=== PATIENT | female | born 1980 | race Two or more races ===

== ENCOUNTER 2017-10-20 19:45 | Emergency (ER) | payer SELFPAY ==
[2017-10-20] MEDS: IBUPROFEN 800 MG TABLET. PO (20:52)
[2017-10-20 21:01] LABS: INFLUENZA A PATIENT POSITIVE (NEGATIVE); INFLUENZA B PATIENT NEGATIVE (NEGATIVE); OBC FLU VALID
[2017-10-21 11:55] LABS: NEGATIVE OBC STREP NEG; POSITIVE OBC STREP POS
== END 2017-10-20 21:27 | disposition home or self-care (01) ==
LOC: ER 19:45
DX: J09.X2 Influenza due to identified novel influenza A virus with other respiratory manifestations (principal)
CPT/HCPCS: 71046; 87070; 87804; 87804-59; 87880; 99285-25

== ENCOUNTER 2020-04-13 23:12 | Emergency (ER) | payer BC ==
[~2020-04-13] VITALS: Ht 154.9 cm; Wt 75.0 kg
[~2020-04-13 23:12] MED LIST: OSEL75CA PO
[2020-04-13 23:25] VITALS: BP 125/60
[2020-04-13 23:32] LABS: BILIRUBIN,URINE NEGATIVE (NEG); CLARITY,URINE CLEAR; COLOR,URINE YELLOW; NITRITE,URINE POSITIVE (NEG); PROTEIN,URINE NEGATIVE (NEG-TRACE); UROBILINOGEN,URINE 0.2 mg/dL (0.2 mg/dL)
[2020-04-13 23:33] LABS: U PREG PATIENT NEGATIVE (NEG)
[2020-04-13 23:36] LABS: BACTERIA,URINE MANY /HPF (0-FEW); SQUAMOUS EPITHELIAL CELL,UR MANY /LPF
[2020-04-13 23:37] LABS: RBC,URINE 0 /HPF (0-2)
[2020-04-13 23:38] LABS: WBC,URINE OCC /HPF (0-4)
[2020-04-13] MEDS ORDERED: SULF1TAB24 PO (23:47)
--- NOTE | 2020-04-13 23:47 | PHYS DOC ---
Past Medical History Past Medical History: Other Additional Past Medical Histor: ULCERS Past Surgical History: Cholecystectomy, Other Additional Past Surgical Histo: HERNIA Smoking Status: Never Smoker Alcohol Use: Occasionally Drug Use: None General Adult EDM: Chief Complaint: FLANK PAIN HPI: HPI: Patient is a 40 year old female presents to the ED with a chief complaint of left flank pain. Patient states that the pain is been present for the last 1 week. 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 She is concerned that she may have a UTI. Patient denies . Patient denies fever, chills, nausea, vomiting, chest pain, shortness of breath. Review of Systems: Review of Systems: Constitutional: Denies fever or chills. [] Eyes: Denies change in visual acuity. [] HENT: Denies nasal congestion or sore throat. [] Respiratory: Denies cough or shortness of breath. [] Cardiovascular: Denies chest pain or edema. [] GI: Complains of left flank pain [] : Denies dysuria. [] Neurologic: Denies headache, focal weakness or sensory changes. [] Heart Score: Risk Factors: Risk Factors: DM, Current or recent (<one month) smoker, HTN, HLP, family history of CAD, obesity. Risk Scores: Score 0 - 3: 2.5% MACE over next 6 weeks - Discharge Home Score 4 - 6: 20.3% MACE over next 6 weeks - Admit for Clinical Observation Score 7 - 10: 72.7% MACE over next 6 weeks - Early Invasive Strategies Allergies: Allergies: Allergies Coded Allergies Type Severity Reaction Last Updated Verified No Known Drug Allergies 10/20/17 No Physical Exam: PE: Constitutional: Well developed, well nourished, no acute distress, non-toxic appearance. [] HENT: Normocephalic, atraumatic Eyes: EOMI Neck: Normal range of motion, Supple Cardiovascular:Heart rate regular rhythm Lungs & Thorax: Bilateral breath sounds clear to auscultation [] Abdomen: Patient has left flank tenderness Extremities: No tenderness, ROM intact Neurologic: Alert and oriented X 3 Current Patient Data: Labs: Laboratory Tests Test 04/13/20 23:15 Urine Collection Type Void Urine Color Yellow Urine Clarity Clear Urine pH 6.0 (<5.0-8.0) Urine Specific [place] 1.025 (1.000-1.030) Urine Protein Negative mg/dL (NEG-TRACE) Urine Glucose (UA) Negative mg/dL (NEG) Urine Ketones (Stick) Negative mg/dL (NEG) Urine Blood Negative (NEG) Urine Nitrite Positive (NEG) Urine Bilirubin Negative (NEG) Urine Urobilinogen Dipstick 0.2 mg/dL (0.2 mg/dL) Urine Leukocyte Esterase Trace (NEG) Urine RBC 0 /HPF (0-2) Urine WBC Occ /HPF (0-4) Urine Squamous Epithelial Cells Many /LPF Urine Bacteria Many /HPF (0-FEW) Urine Test Negative (NEG) Vital Signs: Vital Signs Date Time Temp Pulse Resp B/P (MAP) Pulse Ox O2 Delivery O2 Flow Rate FiO2 04/13/20 23:25 98.3 70 20 125/60 (81) 97 Room Air 98.3 EKG: EKG: [] Radiology/Procedures: Radiology/Procedures: [] Course & Med Decision Making: Course & Med Decision Making Pertinent Labs reviewed. (See chart for details) UA shows that patient has UTI. Urine is negative. We will treat patient with oral antibiotics. Discussed results and plan of care with patient. Patient is instructed to follow up with PCP in one to 2 days. Appropriate discharge instructions given to patient to return to the ED or to seek immediate medical evaluation. Patient is instructed to return to the ED if symptoms worsen or if any concerns. Dragon Disclaimer: Dragon Disclaimer: This electronic medical record was generated, in whole or in part, using a voice recognition dictation system. Departure Departure Impression: Primary Impression: UTI (urinary tract infection) Disposition: 01 HOME, SELF-CARE Condition: STABLE Referrals: VESNA UGARTE JR, MD (PCP) Patient Instructions: Urinary Tract Infection Additional Instructions: Discussed results and plan of care with patient. Patient is instructed to follow up with PCP in one to 2 days. Appropriate discharge instructions given to patient to return to the ED or to seek immediate medical evaluation. Patient is instructed to return to the ED if symptoms worsen or if any concerns. Scripts Sulfamethoxazole/Trimethoprim (BACTRIM DS TABLET) 1 Each Tablet 1 TAB PO BID for 7 Days, #14 TAB 0 Refills Prov: JESSICA MURILLO DO 04/13/20 Justicifation of Admission Dx: Justifications for Admission: Justification of Admission Dx: No GOLLAPALLI,JESSICA E DO Apr 13, 2020 23:47
[2020-04-14] MEDS ORDERED: SMZ/TMP 800/160MG TABLET. PO ONE
== END 2020-04-13 23:55 | disposition home or self-care (01) ==
LOC: ER 23:12
DX: N39.0 Urinary tract infection, site not specified (principal); E86.0 Dehydration; R10.9 Unspecified abdominal pain; Z90.49 Acquired absence of other specified parts of digestive tract; Z98.890 Other specified postprocedural states
CPT/HCPCS: 81001; 81025; 87086; 99283

== ENCOUNTER 2020-10-02 21:30 | Emergency (ER) | payer BC ==
[~2020-10-02] VITALS: Ht 162.6 cm; Wt 72.7 kg
[~2020-10-02 21:30] MED LIST changes: +SULF1TAB24 PO
--- NOTE | 2020-10-03 00:20 | PHYS DOC ---
Past Medical History Past Medical History: Other Additional Past Medical Histor: ULCERS Past Surgical History: Cholecystectomy, Other Additional Past Surgical Histo: HERNIA Smoking Status: Never Smoker Alcohol Use: Occasionally Drug Use: None General Adult EDM: Chief Complaint: HEADACHE HPI: HPI: Patient is a 40 year old female presents with a 2-day history of what started as bilateral flank pain worse on the left that progressed into myalgias with chills and a low-grade fever. Patient is also had a headache with some mild nausea. Patient describes the headache as 8 out of 10 in severity, patient denies any vomiting but is experiencing nausea. Patient denies any neck pain or focal neurological deficits. Patient denies any dysuria or hematuria. Patient's back pain is worse with palpation as well. Review of Systems: Review of Systems: Constitutional: Complains of low-grade fever and chills Eyes: Denies change in visual acuity. [] HENT: Denies nasal congestion or sore throat. [] Respiratory: Denies cough or shortness of breath. [] Cardiovascular: Denies chest pain or edema. [] GI: Denies abdominal pain, vomiting, bloody stools or diarrhea. [] Patient has had some nausea : Denies dysuria. [] Musculoskeletal: Complains of flank pain and myalgias Integument: Denies rash. [] Neurologic: Complains of headache but no, focal weakness or sensory changes. [] Endocrine: Denies polyuria or polydipsia. [] Lymphatic: Denies swollen glands. [] Psychiatric: Denies depression or anxiety. [] Heart Score: Risk Factors: Risk Factors: DM, Current or recent (<one month) smoker, HTN, HLP, family history of CAD, obesity. Risk Scores: Score 0 - 3: 2.5% MACE over next 6 weeks - Discharge Home Score 4 - 6: 20.3% MACE over next 6 weeks - Admit for Clinical Observation Score 7 - 10: 72.7% MACE over next 6 weeks - Early Invasive Strategies Current Medications: Current Medications Medications (Trade) Dose Ordered Sig/Bakari Start Time Stop Time Status Last Admin Dose Admin Ketorolac Tromethamine (Toradol Im) 30 mg 1X ONCE 10/03/20 00:15 10/03/20 00:16 UNV Ondansetron HCl (Zofran) 4 mg 1X ONCE 10/03/20 00:15 10/03/20 00:16 UNV Sodium Chloride 1,000 ml @ 1,000 mls/hr 1X ONCE 10/03/20 00:15 10/03/20 01:14 UNV Allergies: Allergies: Allergies Coded Allergies Type Severity Reaction Last Updated Verified No Known Drug Allergies 10/20/17 No Physical Exam: PE: Constitutional: Well developed, well nourished, no acute distress, non-toxic appearance. [] HENT: Normocephalic, atraumatic, bilateral external ears normal, no trismus nose normal. [] Eyes: PERRLA, EOMI, conjunctiva normal, no discharge. [] Neck: Normal range of motion, no tenderness, supple, no stridor. [] No meningeal signs Cardiovascular: Mildly tachycardia, peripheral pulse intact, cap refill is brisk Lungs & Thorax: Bilateral breath sounds clear, no respiratory distress Abdomen: Soft, nontender no guarding no rebound] Skin: Warm, dry, no erythema, no rash. [] Back: N bilateral CVA tenderness Extremities: No tenderness, no cyanosis, no clubbing, ROM intact, no edema. [] Neurologic: Alert and oriented X 3, normal motor function, normal sensory function, no focal deficits noted. [] Psychologic: Affect normal, judgement normal, mood normal. [] Current Patient Data: Labs: Laboratory Tests Test 10/02/20 21:33 10/02/20 23:25 10/03/20 00:30 Urine Collection Type Unknown Urine Color Yellow Urine Clarity Cloudy Urine pH 6.0 Urine Specific [place] 1.015 Urine Protein Negative mg/dL Urine Glucose (UA) Negative mg/dL Urine Ketones (Stick) Negative mg/dL Urine Blood Moderate Urine Nitrite Negative Urine Bilirubin Negative Urine Urobilinogen Dipstick 0.2 mg/dL Urine Leukocyte Esterase Large Urine RBC 11-20 /HPF Urine WBC Tntc /HPF Urine Squamous Epithelial Cells Many /LPF Urine Bacteria Many /HPF Urine Mucus Mod /LPF Bedside Urine HCG, Qualitative Hcg negative White Blood Count 13.4 x10^3/uL Red Blood Count 4.37 x10^6/uL Hemoglobin 12.8 g/dL Hematocrit 37.9 % Mean Corpuscular Volume 87 fL Mean Corpuscular Hemoglobin 29 pg Mean Corpuscular Hemoglobin Concent 34 g/dL Red Cell Distribution Width 12.2 % Platelet Count 236 x10^3/uL Neutrophils (%) (Auto) 87 % Lymphocytes (%) (Auto) 8 % Monocytes (%) (Auto) 5 % Eosinophils (%) (Auto) 0 % Basophils (%) (Auto) 0 % Neutrophils # (Auto) 11.7 x10^3/uL Lymphocytes # (Auto) 1.0 x10^3/uL Monocytes # (Auto) 0.7 x10^3/uL Eosinophils # (Auto) 0.0 x10^3/uL Basophils # (Auto) 0.1 x10^3/uL Segmented Neutrophils % 86 % Lymphocytes % 10 % Monocytes % 4 % Platelet Estimate Adequate Sodium Level 135 mmol/L Potassium Level 3.9 mmol/L Chloride Level 100 mmol/L Carbon Dioxide Level 27 mmol/L Anion Gap 8 Blood Urea Nitrogen 7 mg/dL Creatinine 0.8 mg/dL Estimated GFR (Cockcroft-Gault) 79.9 BUN/Creatinine Ratio 9 Glucose Level 117 mg/dL Lactic Acid Level 1.0 mmol/L Calcium Level 8.7 mg/dL Total Bilirubin 0.3 mg/dL Aspartate Amino Transf (AST/SGOT) 72 U/L Alanine Aminotransferase (ALT/SGPT) 81 U/L Alkaline Phosphatase 61 U/L Total Protein 7.6 g/dL Albumin 3.6 g/dL Albumin/Globulin Ratio 0.9 Lipase 71 U/L Current Medications Medications (Trade) Dose Ordered Sig/Bakari Route PRN Reason Start Time Stop Time Status Last Admin Dose Admin Ketorolac Tromethamine (Toradol 30mg Vial) 30 mg 1X ONCE IM 10/03/20 00:30 10/03/20 00:31 DC 10/03/20 00:35 Ondansetron HCl (Zofran) 4 mg 1X ONCE IVP 10/03/20 00:30 10/03/20 00:31 DC 10/03/20 00:35 Sodium Chloride 1,000 ml @ 1,000 mls/hr 1X ONCE IV 10/03/20 00:30 10/03/20 01:29 DC 10/03/20 00:35 Ceftriaxone Sodium (Rocephin) 1 gm 1X ONCE IVP 10/03/20 01:00 10/03/20 01:01 DC 10/03/20 01:00 Laboratory Tests Test 10/02/20 23:25 POC Urine HCG, Qualitative Hcg negative (Negative) Vital Signs: Vital Signs Date Time Temp Pulse Resp B/P (MAP) Pulse Ox O2 Delivery O2 Flow Rate FiO2 10/02/20 23:11 99.5 106 20 121/75 (90) 98 Room Air 99.5 EKG: EKG: [] Radiology/Procedures: Radiology/Procedures: [][address] [id number] IMAGING REPORT Signed PATIENT: ROSA VÁZQUEZ MACCOUNT: [id number] : 1980 LOCATION: ER AGE: 40 SEX: F EXAM STATUS: REG ER ORD. PHYSICIAN: JUNG KUMAR MD REASON: FEVER PROCEDURE: PORTABLE CHEST 1V XR CHEST 1V 10/03/2020 1:26 AM INDICATION: Fever COMPARISON: None available TECHNIQUE: Portable frontal view of the chest is provided. FINDINGS: The cardiomediastinal silhouette is within normal limits. There may be subtle increased interstitial airspace disease at the lung bases. There are no significant pleural effusions. There is no pulmonary vascular congestion. No pneumothorax. No suspicious osseous abnormality. IMPRESSION: There may be subtle increased interstitial airspace disease at the lung bases suggestive of interstitial pneumonitis. Electronically signed by: Thomas Sifuentes MD (10/03/2020 1:44 AM) [facility] DICTATED and SIGNED BY: THOMAS SIFUENTES MD DATE: 10/03/20 [id number] [id number] IMAGING REPORT Signed PATIENT: ROSA VÁZQUEZ MACCOUNT: [id number] : 1980 LOCATION: ER AGE: 40 SEX: F EXAM STATUS: REG ER ORD. PHYSICIAN: JUNG KUMAR MD REASON: FLANK PAIN, FEVER PROCEDURE: CT ABDOMEN PELVIS WO CONTRAST PQRS Compliance Statement: One or more of the following individualized dose reduction techniques were ut ilized for this examination: 1. Automated exposure control 2. Adjustment of the mA and/or kV according to patient size 3. Use of iterative reconstruction technique CT abdomen/pelvis without contrast 10/03/2020 1:26 AM INDICATION: Flank pain, fever COMPARISON: None available TECHNIQUE: Multiple axial CT images of the abdomen and pelvis were obtained without intravenous contrast. Coronal and sagittal reformats are provided. FINDINGS: Lung bases are clear. Heart size within normal limits. Evaluation of solid abdominal viscera is uneventful lack of intravenous contrast. Liver, spleen, bilateral adrenal glands and pancreas are normal in appearance. Gallbladder surgically absent. Pneumobilia may reflect recent sphincterotomy. Abdominal aorta is normal in course and caliber. No pathologically enlarged lymph nodes are identified in abdomen and pelvis. There is no free fluid or free intraperitoneal air. Small fat-containing umbilical hernia. Small large bowel are normal in caliber. No bowel obstruction or inflammation is identified. Appendix is normal in appearance. There is mild to moderate left hydroureteronephrosis. No definite obstructive etiology is identified. Calculus is not identified along the course of the left urinary bladder. Phleboliths are identified within the pelvis. Left perinephric and periureteral fat stranding is identified. No bladder wall thickening. No suspicious pelvic mass. For the changes are identified in the adnexa bilaterally. No suspicious osseous abnormality. IMPRESSION: 1. There is mild to moderate left hydroureteronephrosis without definite obstructive etiology. There is perinephric and periureteral fat stranding. Consideration may be given for pyelitis and pyelonephritis. Correlate with urinalysis. Recently passed calculus may have similar appearance. Phleboliths are identified within the pelvis. Electronically signed by: Thomas Sifuentes MD (10/03/2020 2:02 AM) [facility] DICTATED and SIGNED BY: THOMAS SIFUENTES MD DATE: 10/03/20 [id number] Course & Med Decision Making: Course & Med Decision Making Pertinent Labs and Imaging studies reviewed. (See chart for details) [] 40-year-old female presents with flank pain followed by myalgias and low-grade fever and chills. Symptoms are consistent with a urinary tract infection. CT shows left-sided pyelonephritis versus recently passed stone versus both. Patient reassessed at 3:15 AM and feels much better. Patient has no meningeal signs. Patient is neurologically intact. Doubt meningitis. Patient be treated with antibiotics and anti-inflammatories and antiemetics. Patient told return if symptoms gets worse such as fever, intractable vomiting. Patient states she feels much better and would like to go home. Shazia Disclaimer: Shazia Disclaimer: This electronic medical record was generated, in whole or in part, using a voice recognition dictation system. Departure Departure Impression: Primary Impression: Pyelonephritis Additional Impression: Flank pain Disposition: 01 DC HOME SELF CARE/HOMELESS Condition: STABLE Referrals: VESNA UGARTE JR, MD (PCP) 2-3 DAYS Patient Instructions: Pyelonephritis, Adult Additional Instructions: EMERGENCY DEPARTMENT GENERAL DISCHARGE INSTRUCTIONS THANK YOU for coming to [facility] Emergency Department (ED) today and trusting us with your care. We trust that you had a positive experience in our Emergency Department. If you wish to speak to the department Management you can contact the last model department supervisor at . YOUR FOLLOW UP INSTRUCTIONS ARE FOLLOWS: Do you have a private doctor? If you do not have a private doctor, please ask for a resource list of physicians or clinics that may be able to assist you with follow up care. The Emergency Physician has interpreted your x-rays. The X-ray specialist will also review them. If there is a change in the findings you will be notified in 48 hours when at all possible. A lab test or lab culture may have been done, your results will be reviewed and you will be notified if you need a change in treatment. ADDITIONAL INSTRUCTIONS AND INFORMATION Your care today has been supervised by a physician who is specially trained in emergency care. Many problems require more than one evaluation for a complete diagnosis and treatment. We recommend that you schedule your follow up appointment as recommended to ensure complete treatment of your illness or injury. If you are unable to obtain follow up care and continue to have a problem, or if your condition worsens we recommend that you return to the ED. We are not able to safely determine your condition over the phone nor are we able to give sound medical advice over the phone. For these safety reasons, if you call for medical advice we will ask you to come to the ED for further evaluation If you have any questions regarding these discharge instructions please call the ED at . SAFETY INFORMATION In the interest of safety, wellness, and injury prevention; we encourage you to wear your seatbelt, if you smoke; quit smoking, and we encourage your family to use protective helmet for bicycling and other sporting events that present an increased risk for head injury. IF YOUR SYMPTOMS WORSEN OR NEW SYMPTOMS DEVELOP, OR YOU HAVE CONCERNS ABOUT YOUR CONDITION; OR IF YOUR CONDITION WORSENS WHILE YOU ARE WAITING FOR YOUR FOLLOW UP APPOINTMENT; EITHER CONTACT YOUR PRIMARY CARE DOCTOR, THE PHYSICIAN WHOSE NAME AND NUMBER YOU WERE GIVEN, OR RETURN TO THE ED IMMEDIATELY. Scripts Cephalexin (KEFLEX) 500 Mg Capsule 500 MG PO QID for 10 Days, #40 CAP Prov: JUNG KUMAR MD 10/03/20 Ondansetron (ONDANSETRON ODT) 4 Mg Tab.rapdis 1 TAB PO PRN Q6-8HRS PRN for NAUSEA, #15 TAB Prov: JUNG KUMAR MD 10/03/20 Ibuprofen (IBUPROFEN) 600 Mg Tablet 600 MG PO PRN Q6HRS PRN for PAIN, #20 TAB take with food or milk Prov: JUNG KUMAR MD 10/03/20 JUNG KUMAR MD Oct 03, 2020 00:20
[2020-10-03 00:23] LABS: BILIRUBIN,URINE NEGATIVE (NEG); CLARITY,URINE CLOUDY; COLOR,URINE YELLOW; NITRITE,URINE NEGATIVE (NEG); PROTEIN,URINE NEGATIVE (NEG-TRACE); UROBILINOGEN,URINE 0.2 mg/dL (0.2 mg/dL)
[2020-10-03] MEDS ORDERED: ONDANSETRON PF 4 MG/2 ML VIAL. IVP ONE (00:30)
[2020-10-03] MEDS ORDERED: KETOROLAC 30 MG/ML VIAL. IM ONE (00:30)
[2020-10-03] MEDS ORDERED: IV NORMAL SALINE 1000ML BAG 1,000 ML IV ONE (00:30)
[2020-10-03 00:31] LABS: BACTERIA,URINE MANY /HPF (0-FEW); WBC,URINE TNTC /HPF (0-4)
[2020-10-03 00:37] LABS: BASO # 0.1 x10^3/uL (0.0-0.2); BASO % 0 % (0-3); EOS % 0 % (0-3); HEMATOCRIT 37.9 % (36.0-47.0); HEMOGLOBIN 12.8 g/dL (12.0-15.5); LYMPH % 8 % (24-48); MEAN CORPUSCULAR HEMOGLOBIN 29 pg (25-35); MEAN CORPUSCULAR HGB CONC 34 g/dL (31-37); MEAN CORPUSCULAR VOLUME 87 fL (79-100); MONO # 0.7 x10^3/uL (0.0-1.1); MONO % 5 % (0-9); NEUT # 11.7 x10^3/uL (1.8-7.7); NEUT % 87 % (31-73); PLATELET COUNT 236 x10^3/uL (140-400); RED BLOOD COUNT 4.37 x10^6/uL (3.50-5.40); RED CELL DISTRIBUTION WIDTH 12.2 % (11.5-14.5); WHITE BLOOD COUNT 13.4 x10^3/uL (4.0-11.0)
[2020-10-03 00:46] LABS: CALCIUM 8.7 mg/dL (8.5-10.1); CREATININE 0.8 mg/dL (0.6-1.0); GFR 79.9; POTASSIUM 3.9 mmol/L (3.5-5.1)
[2020-10-03 00:51] LABS: ALBUMIN 3.6 g/dL (3.4-5.0); ALBUMIN/GLOBULIN RATIO 0.9 (1.0-1.7); TOTAL BILIRUBIN 0.3 mg/dL (0.2-1.0); TOTAL PROTEIN 7.6 g/dL (6.4-8.2)
[2020-10-03] MEDS ORDERED: cefTRIAXone IV Push 1 GM VIAL. IVP ONE (01:00)
[2020-10-03 01:03] VITALS: BP 130/66
[2020-10-03 01:36] LABS: % LYMPHS 10 % (24-48); % MONOS 4 % (0-10); % SEGS 86 % (35-66); PLT ESTIMATE ADEQUATE (ADEQUATE)
--- NOTE | 2020-10-03 01:46 | RAD ---
XR CHEST 1V 10/03/2020 1:26 AM INDICATION: Fever COMPARISON: None available TECHNIQUE: Portable frontal view of the chest is provided. FINDINGS: The cardiomediastinal silhouette is within normal limits. There may be subtle increased interstitial airspace disease at the lung bases. There are no significant pleural effusions. There is no pulmonary vascular congestion. No pneumothora x. No suspicious osseous abnormality. IMPRESSION: There may be subtle increased interstitial airspace disease at the lung bases suggestive of interstit ial pneumonitis. Electronically signed by: Sylvia Jimenez MD (10/03/2020 1:44 AM) LIANA
--- NOTE | 2020-10-03 02:05 | RAD ---
PQRS Compliance Statement: One or more of the following individualized dose reduction techniques were utilized for this examinat ion: 1. Automated exposure control 2. Adjustment of the mA and/or kV according to patient size 3. Use of iterative reconstruction technique CT abdomen/pelvis without contrast 10/03/2020 1:26 AM INDICATION: Flank pain, fever COMPARISON: None available TECHNIQUE: Multiple axial CT images of the abdomen and pelvis were obtained without intravenous contr ast. Coronal and sagittal reformats are provided. FINDINGS: Lung bases are clear. Heart size within normal limits. Evaluation of solid abdominal viscera is uneve ntful lack of intravenous contrast. Liver, spleen, bilateral adrenal glands and pancreas are normal i n appearance. Gallbladder surgically absent. Pneumobilia may reflect recent sphincterotomy. Abdominal aorta is normal in course and caliber. No pathologically enlarged lymph nodes are identified in abdo men and pelvis. There is no free fluid or free intraperitoneal air. Small fat-containing umbilical he rnia. Small large bowel are normal in caliber. No bowel obstruction or inflammation is identified. Appendix is normal in appearance. There is mild to moderate left hydroureteronephrosis. No definite obstructive etiology is identified. Calculus is not identified along the course of the left urinary bladder. Phleboliths are identified within the pelvis. Left perinephric and periureteral fat stranding is identified. No bladder wall thi ckening. No suspicious pelvic mass. For the changes are identified in the adnexa bilaterally. No susp icious osseous abnormality. IMPRESSION: 1. There is mild to moderate left hydroureteronephrosis without definite obstructive etiology. There is perinephric and periureteral fat stranding. Consideration may be given for pyelitis and pyelonephr itis. Correlate with urinalysis. Recently passed calculus may have similar appearance. Phleboliths ar e identified within the pelvis. Electronically signed by: Sylvia Jimenez MD (10/03/2020 2:02 AM) [facility]
[2020-10-03] MEDS ORDERED: ONDA4TAB12 PO (03:35)
[2020-10-03] MEDS ORDERED: IBUP-1007 PO (03:35)
[2020-10-03] MEDS ORDERED: CEPH-264 PO (03:35)
== END 2020-10-03 03:48 | disposition home or self-care (01) ==
LOC: ER 21:30
DX: N10 Acute pyelonephritis (principal); R51.9 Headache, unspecified; R50.9 Fever, unspecified; R10.9 Unspecified abdominal pain; Z90.49 Acquired absence of other specified parts of digestive tract; Z98.890 Other specified postprocedural states
CPT/HCPCS: 36415; 71045; 74176; 80053; 81001; 81025; 83605; 83690; 85007; 85025; 87040; 87086; 96361; 96372; 96374; 96375; 99285; J0696; J1885; J2405; J7030